=== PATIENT | female | born 2000 | race African-American/Black ===

== ENCOUNTER 2020-10-23 19:22 | Emergency (ER) | payer OTHER ==
[2020-10-23] MEDS ORDERED: KETOROLAC 30 MG/ML INJ ONE (19:49)
[2020-10-23 19:50] LABS: Urine Specific Gravity/Preg >1.030 (1.005-1.030)
[2020-10-23] MEDS ORDERED: NA CHLORIDE 0.9% 1,000 ML ONE (19:50)
[2020-10-23 20:03] LABS: Absolute Lymphocytes (CBC) 4.7 K/uL (0.7-4.9); Basophils % 0.5 % (0-1.3); Hematocrit 40.8 % (36.0-45.0); Lymphocytes % 55.5 % (15.3-44.8); MPV 9.4 fL (7.6-11.3); RBC Red Blood Cell Count 4.46 M/uL (3.86-4.86)
[2020-10-23 20:19] LABS: Albumin 4.6 g/dL (3.4-5.0); Bilirubin Total 0.4 mg/dL (0.2-1.0); Potassium 3.3 mmol/L (3.5-5.1); Protein, Total 8.3 g/dL (6.4-8.2)
--- NOTE | 2020-10-23 21:15 | RAD REPORT ---
EXAM DESCRIPTION: Mark Single View10/23/2020 9:04 pm CLINICAL HISTORY: Shortness of breath COMPARISON: none FINDINGS: The lungs appear clear of acute infiltrate. The heart is normal size IMPRESSION: No acute abnormalities displayed
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
[2020-10-23 21:50] VITALS: TEMP 98.6
[2020-10-23 21:51] VITALS: O2SAT 100
[2020-10-23 21:54] VITALS: BP 105/54
== END 2020-10-23 21:40 | disposition home or self-care (01) ==
LOC: ER 19:22
DX: T75.1XXA Unspecified effects of drowning and nonfatal submersion, initial encounter (principal); W69.XXXA Accidental drowning and submersion while in natural water, initial encounter
CPT/HCPCS: 96361; 85025; 36415; 81025; 80053; 71045; 96374; 99284; J7030